=== PATIENT | female | born 1970 | race Caucasian/White ===

== ENCOUNTER 2017-03-10 14:08 | Emergency (ER) | payer MEDICARE ==
[~2017-03-10] VITALS: Ht 157.5 cm; Wt 57.0 kg
[2017-03-10] MEDS ORDERED: MECLIZINE CHEWABLE 25 MG TAB ONE (15:24)
[2017-03-10] MEDS ORDERED: ONDANSETRON 2MG/ML, 2ML ONE (15:24)
[2017-03-10] MEDS ORDERED: LORazepam 2 MG/ML, 1ML ONE (15:24)
[2017-03-10 15:29] LABS: HEMOGLOBIN 9.9 g/dL (11.7-16.4)
[2017-03-10] MEDS ORDERED: SODIUM CHLORIDE 0.9% 1,000ML IVBOLUS ONE (15:30)
[2017-03-10] MEDS ORDERED: ONDANSETRON 2MG/ML, 2ML IVPush ONE (15:30)
[2017-03-10] MEDS ORDERED: MECLIZINE CHEWABLE 25 MG TAB PO ONE (15:30)
[2017-03-10] MEDS ORDERED: LORazepam 2 MG/ML, 1ML IVPush ONE (15:30)
[2017-03-10 15:41] LABS: ASPARTATE AMINO TRANSFERASE 17 U/L (15-37); BLOOD UREA NITROGEN 9 mg/dL (7-18)
[2017-03-10] MEDS ORDERED: PHEN15CA PO (16:06)
[2017-03-10] MEDS ORDERED: OMEP20TA62 PO (16:07)
[2017-03-10] MEDS ORDERED: IRON1TAB60 PO (16:07)
[2017-03-10] MEDS ORDERED: CHOL200074 PO (16:07)
[2017-03-10] MEDS ORDERED: FLUD0.1T PO (16:08)
[2017-03-10] MEDS ORDERED: ANAS1TAB PO (16:08)
[2017-03-10] MEDS ORDERED: ALIR75PE IM (16:10)
[2017-03-10] MEDS ORDERED: FLUO40CA2 PO (16:11)
[2017-03-10] MEDS ORDERED: ZOLP5TAB6 PO (16:11)
[2017-03-10] MEDS ORDERED: MAGN500T PO (16:12)
[2017-03-10] MEDS ORDERED: CETI10TA24 PO (16:13)
[2017-03-10] MEDS ORDERED: CALC200V NAS (16:14)
[2017-03-10] MEDS ORDERED: ETID400T2 PO (16:15)
[2017-03-10] MEDS ORDERED: MAALOX/HYOSCYAMINE/LIDOCAINE 45 ML BTL ONE (18:20)
[2017-03-10 18:24] VITALS: BP 143/91
== END 2017-03-10 18:26 | disposition home or self-care (01) ==
LOC: ED 17:36
DX: H81.11 Benign paroxysmal vertigo, right ear (principal); J20.8 Acute bronchitis due to other specified organisms; D53.9 Nutritional anemia, unspecified
CPT/HCPCS: 36415; 71010; 80053; 81003; 83605; 85025; 93005; 96361; 96374; 96375; 99285; J2060; J2405; J7030